=== PATIENT | female | born 1930 | race Caucasian/White ===

== ENCOUNTER 2021-05-08 14:49 | Emergency (ER) | payer MEDICARE, BC ==
--- NOTE | 2021-05-08 15:26 | EDM.PDOC ---
ED HPI GENERAL MEDICAL PROBLEM - General Chief Complaint: General Stated Complaint: fall,edema to forehead, laceration to bridge of no Time Seen by Provider: 05/08/21 15:10 Source of Information: Reports: Patient, Family History Limitations: Reports: No Limitations - History of Present Illness INITIAL COMMENTS - FREE TEXT/NARRATIVE: Patient fell face first when she missed a step coming onto patio from the yard. Hit deck furniture with forehead during fall. No LOC. Now has pain/swelling above left eye/over nose. Also some neck pain. No other acute complaints/changes. Family thinks patient was a bit confused during car ride to hospital. Now is doing fine. No vision changes. headache Pain Score (Numeric/FACES): 4 - Related Data Allergies Allergy/AdvReac Type Severity Reaction Status Date / Time No Known Allergies Allergy Verified 05/08/21 16:35 Home Meds: Home Meds Aspirin [Adult Aspirin Regimen] 81 mg PO DAILY 05/08/21 [History] Furosemide [Lasix] 20 mg PO DAILY 05/08/21 [History] Levothyroxine [Synthroid] 100 mg PO DAILY 05/08/21 [History] Losartan Potassium 100 mg PO DAILY 05/08/21 [History] Metoprolol Succinate [Toprol XL] 25 mg PO DAILY 05/08/21 [History] Multivitamin [Multi-Vitamin Daily] 1 tab PO DAILY 05/08/21 [History] Propylene Glycol/PEG 400/Pf [Systane 0.3-0.4% Eye Drop] 1 drop EYEBOTH ASDIRECTED PRN 05/08/21 [History] Simvastatin [Zocor] 20 mg PO DAILY 05/08/21 [History] amLODIPine [Norvasc] 10 mg PO DAILY 05/08/21 [History] hydroCHLOROthiazide [Hydrochlorothiazide] 12.5 mg PO DAILY 05/08/21 [History] Past Medical History Cardiovascular History: Reports: High Cholesterol, Hypertension Endocrine/Metabolic History: Reports: Hypothyroidism Social & Family History - Tobacco Use Tobacco Use Status *Q: Never Tobacco User - Caffeine Use Caffeine Use: Reports: Coffee - Alcohol Use Alcohol Use History: No - Recreational Drug Use Recreational Drug Use: No Drug Use in Last 12 Months: No ED ROS GENERAL - Review of Systems Review Of Systems: See Below Constitutional: Reports: No Symptoms HEENT: Reports: Other (laceration bridge of nose/contusion above left eye) Respiratory: Reports: No Symptoms Cardiovascular: Reports: No Symptoms. Denies: Chest Pain, Lightheadedness, Palpitations GI/Abdominal: Reports: No Symptoms : Reports: No Symptoms Musculoskeletal: Reports: Other (neck pain is only acute change) Skin: Reports: Bruising, Wound Neurological: Reports: Headache. Denies: Confusion, Dizziness, Numbness, Paresthesia, Trouble Speaking, Difficulty Walking, Weakness, Change in Speech Psychiatric: Reports: No Symptoms ED EXAM, GENERAL - Physical Exam Exam: See Below Exam Limited By: No Limitations General Appearance: Alert, WD/WN, No Apparent Distress Eye Exam: Bilateral Eye: EOMI, PERRL Ears: Normal External Exam, Hearing Grossly Normal Nose: Other (small laceration bridge of nose/minimal bleeding. Nasal bridge appears intact). No: Nasal Deformity, Nasal Drainage Throat/Mouth: Normal Lips, Normal Teeth, Normal Voice, No Airway Compromise Head: Facial Swelling, Facial Tenderness (around left upper orbit/above left eye) Neck: Supple, Tender Lateral (bilaterally). No: Tender Midline Respiratory/Chest: No Respiratory Distress, Lungs Clear, Normal Breath Sounds, No Accessory Muscle Use, Chest Non-Tender Cardiovascular: Regular Rate, Rhythm, No Murmur GI/Abdominal: Normal Bowel Sounds, Soft, Non-Tender (Female) Exam: Deferred Rectal (Female) Exam: Deferred Back Exam: No: CVA Tenderness (L), CVA Tenderness (R), Muscle Spasm, Paraspinal Tenderness, Vertebral Tenderness Extremities: Normal Inspection, Normal Range of Motion, Non-Tender, Normal Capillary Refill Neurological: Alert, Oriented, CN II-XII Intact, Normal Cognition, Normal Gait, No Motor/Sensory Deficits Psychiatric: Normal Affect, Normal Mood ED GENERAL MEDICAL PROCEDURES - Laceration/Wound Repair Upper Nose Lac/wound length in cm: 1 Appearance: Subcutaneous, Linear Skin Prep: Isopropyl Alcohol (Alcohol) Exploration/Debridement/Repair: Wound Explored, In a Bloodless Field, Explored to Base, No Foreign Material Found Closed with: Dermabond Sterile Dressing Applied: Nurse Tetanus Status Addressed: Yes Complications: No Course - Vital Signs Last Recorded V/S: Last Vital Signs Temp 36.7 C 05/08/21 14:54 Pulse 74 05/08/21 14:54 Resp 16 05/08/21 14:54 BP 162/59 H 05/08/21 14:54 Pulse Ox 98 05/08/21 14:54 - Orders/Labs/Meds Orders: Active Orders 24 hr Category Date Time Status Cervical Spine wo Cont [CT] Stat Exams 05/08/21 15:26 Ordered Head wo Cont [CT] Stat Exams 05/08/21 15:25 Taken COMPREHENSIVE METABOLIC PN,CMP [CHEM] AM Lab 05/09/21 05:11 Ordered Labs: Laboratory Tests 05/08/21 05/08/21 Range/Units 15:45 15:45 WBC 7.3 (4.0-10.2) K/uL RBC 4.76 (3.77-5.09) M/uL Hgb 14.5 (11.7-15.5) g/dL Hct 42.4 (34.0-46.0) % MCV 89.1 (84.0-98.0) fL MCH 30.5 (28.2-33.3) pg MCHC 34.2 (31.7-36.0) g/dL RDW 13.1 (11.2-14.1) % Plt Count 294 (150-350) K/uL Neut % (Auto) 66.3 (45.0-80.0) % Lymph % (Auto) 17.8 (10.0-50.0) % [place] % (Auto) 9.2 (2.0-14.0) % Eos % (Auto) 5.9 H (0.0-5.0) % Baso % (Auto) 0.8 (0.0-2.0) % Neut # (Auto) 4.85 (1.40-7.00) K/uL Lymph # (Auto) 1.30 (0.50-3.50) K/uL [place] # (Auto) 0.67 (0.00-1.00) K/uL Eos # (Auto) 0.43 (0.00-0.50) K/uL Baso # (Auto) 0.06 (0.00-0.20) K/uL Magnesium 2.1 (1.8-2.4) mg/dL Meds: Medications Discontinued Medications Generic Name Dose Route Start Last Admin Trade Name Freq PRN Reason Stop Dose Admin Acetaminophen 650 mg 05/08/21 17:34 Acetaminophen 325 Mg Tab PO 05/08/21 17:35 NOW ONE - Re-Assessments/Exams Free Text/Narrative Re-Assessment/Exam: 05/08/21 17:59 Discussed pros/cons of head and neck CT with patient and family. Given the swelling and tenderness of left eye orbital area and mechanism of injury, family and patient elected head CT. Similarly they elected nect CT for better visualization as patient has cervical arthritis that will likely make plain films more difficult to assess for acute injury. Both studies were read as negative for fracture/acute bleed by Radiology. Patient was given Tylenol. She did not want stronger medication. Tissue glue was used to close laceration on nasal bridge. Baseline labs obtained. Results reviewed with patient and family. Precautions also reviewed. OK to go home. To follow up as needed if any changes/concerns arise. Patient and family are comfortable with plans. Departure - Departure Time of Disposition: 17:35 Disposition: Home, Self-Care 01 Condition: Good Clinical Impression: Laceration Head trauma Qualifiers: Encounter type: initial encounter Qualified Code(s): S09.90XA - Unspecified injury of head, initial encounter - Discharge Information *PRESCRIPTION DRUG MONITORING PROGRAM REVIEWED*: Not Applicable *COPY OF PRESCRIPTION DRUG MONITORING REPORT IN PATIENT [place]: Not Applicable Instructions: Head Injury, Adult, Laceration Care, Adult, [id number] Referrals: PCP,None [Primary Care Provider] - Forms: ED Department Discharge Additional Instructions: Watch for changes. If there are problems with a bleed/concussion they usually show up pretty quickly. However as we discussed, sometimes things do not show for a few weeks or even a month. Follow up for recheck if any concerns develop--such as confusion/new headache/vision change/focal neuro changes. OK to take Tylenol. Keep glued laceration dry for next 4-5 days while it heals. Sepsis Event Note (ED) - Evaluation Sepsis Screening Result: No Definite Risk - Focused Exam Vital Signs: Vital Signs Temp Pulse Resp BP Pulse Ox 05/08/21 14:54 36.7 C 74 16 162/59 H 98 - My Orders Last 24 Hours: My Active Orders 05/08/21 15:25 Head wo Cont [CT] Stat 05/08/21 15:26 Cervical Spine wo Cont [CT] Stat 05/09/21 05:11 COMPREHENSIVE METABOLIC PN,CMP [CHEM] AM - Assessment/Plan Last 24 Hours: My Active Orders 05/08/21 15:25 Head wo Cont [CT] Stat 05/08/21 15:26 Cervical Spine wo Cont [CT] Stat 05/09/21 05:11 COMPREHENSIVE METABOLIC PN,CMP [CHEM] AM
[2021-05-08] MEDS ORDERED: Acetaminophen 325 MG Tab PO ONE (17:34)
== END 2021-05-08 17:47 | disposition home or self-care (01) ==
LOC: LL.ED 14:49
DX: S01.21XA Laceration without foreign body of nose, initial encounter (principal); E78.00 Pure hypercholesterolemia, unspecified; I10 Essential (primary) hypertension; E03.9 Hypothyroidism, unspecified; Z79.82 Long term (current) use of aspirin; Z79.899 Other long term (current) drug therapy; W18.09XA Striking against other object with subsequent fall, initial encounter
CPT/HCPCS: 12011; 36415; 70450; 72125; 83735; 85025; 99283; 99284-25